=== PATIENT | female | born 1955 | race Caucasian/White ===

== ENCOUNTER 2018-09-30 11:29 | Emergency (ER) | payer OTHER ==
[2018-09-30 11:37] VITALS: TEMP 98.2; BMI 27.4
--- NOTE | 2018-09-30 11:48 | ED PDOC ---
Arrival/HPI - General Historian: Patient - History of Present Illness Narrative History of Present Illness (Text): 09/30/18 11:45 62 year old female, whose past medical history includes hypertension, diabetes, and hyperlipidemia, presents to the emergency department accompanied family complaining of sharp midsternal chest pain radiating to the left shoulder at times associated with shortness of breath and productive cough that began yesterday. Patient reports she recently arrived from [place] 3 days ago. Patient also reports bilateral lower extremity edema yesterday, which is resolving. Patient reported similar symptoms 8 years ago where she had a catheterization procedure done, but no stents placed. Patient reports numbness to the face at times, but denies any fever, chills, nausea, vomiting, diarrhea, urinary symptoms, back pain, neck pain, headache, dizziness, or any other complaints. PMD: Physician in [place] Past Medical History - Provider Review Nursing Documentation Reviewed: Yes - Travel History Have you recently traveled outside w/in the past 3 mons?: Yes Family/Social History - Physician Review Nursing Documentation Reviewed: Yes Family/Social History: CVA/TIA Allergies/Home Meds Allergies/Adverse Reactions: Allergies No Known Allergies Allergy (Verified 09/30/18 11:37) Home Medications: Home Meds Medication Instructions Recorded Confirmed Aspirin [Aspirin Chewable] 81 mg PO DAILY 09/30/18 09/30/18 Enalapril Maleate [Vasotec] 20 mg PO DAILY 09/30/18 09/30/18 Glipizide [Glipizide Xl] 5 mg PO DAILY 09/30/18 09/30/18 Simvastatin [Zocor] 20 mg PO DAILY 09/30/18 09/30/18 metFORMIN [glucOPHAGE] 500 mg PO DAILY 09/30/18 09/30/18 Review of Systems - Physician Review All systems were reviewed & negative as marked: Yes - Review of Systems Constitutional: absent: Fevers, Other (chills) Respiratory: SOB, Cough Cardiovascular: Chest Pain, Edema Gastrointestinal: absent: Abdominal Pain, Diarrhea, Nausea, Vomiting Genitourinary Female: absent: Dysuria, Frequency, Hematuria Musculoskeletal: absent: Back Pain, Neck Pain Neurological: Other (numbness to face at times). absent: Headache, Dizziness Physical Exam Vital Signs Reviewed: Yes Vital Signs Temp Pulse Resp BP Pulse Ox 09/30/18 11:37 98.2 F 63 18 142/67 100 Temperature: Afebrile Blood Pressure: Normal Pulse: Regular Respiratory Rate: Normal Appearance: Positive for: Well-Appearing, Non-Toxic, Comfortable Pain Distress: None Mental Status: Positive for: Alert and Oriented X 3 - Systems Exam Head: Present: Atraumatic, Normocephalic Pupils: Present: PERRL Extroacular Muscles: Present: EOMI Conjunctiva: Present: Normal Mouth: Present: Moist Mucous Membranes Neck: Present: Normal Range of Motion Respiratory/Chest: Present: Clear to Auscultation, Good Air Exchange. No: Respiratory Distress, Accessory Muscle Use Cardiovascular: Present: Regular Rate and Rhythm, Normal S1, S2. No: Murmurs Abdomen: No: Tenderness, Distention, Peritoneal Signs Back: Present: Normal Inspection Upper Extremity: Present: Normal Inspection. No: Cyanosis, Edema Lower Extremity: Present: Normal Inspection. No: Edema Neurological: Present: GCS=15, CN II-XII Intact, Speech Normal Skin: Present: Warm, Dry, Normal Color. No: Rashes Psychiatric: Present: Alert, Oriented x 3, Normal Insight, Normal Concentration Medical Decision Making ED Course and Treatment: 09/30/18 11:45 Impression: 62 year old female presents complaining of sharp midsternal chest pain radiating to the left shoulder at times associated with shortness of breath, productive cough, and edema to the lower extremities that began yesterday. Patient arrived from [place] 3 days ago. Plan: -- CT Angio chest PE Protocol -- EKG -- Labs -- Chest X-Ray -- Aspirin -- Reassess and disposition Progress Notes: EKG shows NRS at 63 BPM with t-wave inversion in lateral leads. Interpreted by me. Chest X-Ray Dictated by: Giovany Schulte MD Date Signed: 09/30/18 1342 Impression: No active disease Angio Chest PE Protocol Dictated by: Luther Randle MD Dated by: 09/30/18 1412 Impression: No evidence of pulmonary embolism. Incidentally noted cholelithiasis. No pulmonary infiltrate or pleural effusion. 09/30/18 14:30 Leaving Against Medical Advice (AMA): The patient is choosing to leave against medical advice. I have personally explained to the patient that choosing to do so may result in permanent bodily harm or . I have discussed at great length that without further evaluation and monitoring there may be unforeseen circumstances and/or deterioration causing permanent bodily harm or as a result of their choice. The patient is alert, oriented, and shows the mental capacity to make clear decisions regarding the patients health care at this time. The patient continues to wish to leave against medical advice. In light of the patients decision to leave against medical advice, follow-up has been arranged and the patient is aware of the importance to following up as instructed. The patient has been advised that they should return to the e mergency room immediately if they change their mind at any time, or if their condition begins to change or worsen in any way. Will be giving patient prescription of her Enalapril which she takes 20mg twice a day. - Lab Interpretations I have reviewed the lab results: Yes - RAD Interpretation Team Assembly Line Machine Operator: Radiologist - EKG Interpretation Interpreted by ED Physician: Yes Type: 12 lead EKG Disposition/Present on Arrival - Present on Arrival Any Indicators Present on Arrival: No - Disposition Have Diagnosis and Disposition been Completed?: Yes Diagnosis: Chest pain Disposition: AGAINST MEDICAL ADVICE Disposition Time: 14:30 Condition: GUARDED Discharge Instructions (ExitCare): Chest Pain (ED) Additional Instructions: ASTRID HINES, thank you for letting us take care of you today. Your provider was Beny Mckinney DO and you were treated for chest pain. The emergency medical care you received today was directed at your acute symptoms. If you were prescribed any medication, please fill it and take as directed. It may take several days for your symptoms to resolve. Return to the Emergency Department if your symptoms worsen, do not improve, or if you have any other problems. Please contact your doctor or call one of the physicians/clinics you have been referred to that are listed on the Patient Visit Information form that is included in your discharge packet. Bring any paperwork you were given at discharge with you along with any medications you are taking to your follow up visit. Our treatment cannot replace ongoing medical care by a primary care provider outside of the emergency department. Thank you for allowing the [email or web address] team to be part of your care today. YOU SIGNED OUT AGAINST MEDICAL ADVICE. Follow up with your clinic 2-3 days for outpatient care. Return to the emergency room if you have any concerns. Prescriptions: Enalapril Maleate [Vasotec] 20 mg PO BID #60 tab Referrals: [facility] [Outside] - Follow up with primary Chiquita Falcon MD [Medical Doctor] - Follow up with primary
[2018-09-30 12:28] LABS: BASO # 0.01 {null, K/mm3} (0.0-2.0); BASO % 0.1 % (0.0-3.0); EOS % 0.1 % (1.5-5.0); HEMOGLOBIN 11.2 g/dL (12.0-16.0); LYMPH # 1.4 (1.2-3.4); LYMPH % 11.8 % (22.0-35.0); MEAN CELL VOLUME 80.4 fl (80.0-105.0); MEAN CORPUSCULAR HEMOGLOBIN 24.6 pg (25.0-35.0); MEAN CORPUSCULAR HGB CONC 30.6 g/dl (31.0-37.0); MEAN PLATELET VOLUME 10.4 fl (7.0-11.0); MONO # 1.1 (0.1-0.6); MONO % 9.6 % (1.0-6.0); RBC 4.55 {null, 10^6/uL} (3.5-6.1); RED CELL DISTRIBUTION WIDTH 15.3 % (11.5-14.5); WHITE BLOOD COUNT 11.5 {null, 10^3/uL} (4.5-11.0)
[2018-09-30] MEDS ORDERED: Iohexol 350 MG/100 ML VIAL ONE (12:38)
[2018-09-30 12:47] LABS: ALB/GLOB RATIO 1.2 (1.1-1.8); ALBUMIN 3.9 g/dL (3.0-4.8); ALT/SGPT 27 U/L (7-56); AST/SGOT 21 U/L (14-36); BLOOD UREA NITROGEN 21 mg/dL (7-21); GFR NON-AFRICAN AMERICAN > 60
[2018-09-30 12:59] LABS: B-TYPE NATRIURETIC PEPTIDE 969 pg/mL (0-450); TROPONIN I < 0.01 ng/mL
--- NOTE | 2018-09-30 13:51 | RAD ---
Date of service: 09/30/2018 PROCEDURE: CHEST RADIOGRAPH, 1 VIEW HISTORY: chest pain COMPARISON: None available. FINDINGS: LUNGS: Clear. PLEURA: No pneumothorax or pleural fluid seen. CARDIOVASCULAR: Aortic calcification mild cardiomegaly OSSEOUS STRUCTURES: No significant abnormalities. VISUALIZED UPPER ABDOMEN: Normal. OTHER FINDINGS: None. IMPRESSION: No active disease.
--- NOTE | 2018-09-30 14:15 | CT ---
Date of service: 09/30/2018 PROCEDURE: CT Chest with contrast (Pulmonary Angiogram) HISTORY: SOB/CP r/o PE COMPARISON: None available. TECHNIQUE: Axial computed tomography images were obtained of the chest in the pulmonary arterial phase of enhancement. Coronal and sagittal reformatted images were created and reviewed. Intravenous contrast dose: 100 mL Omnipaque 350 Radiation dose: Total exam DLP = 379.49 mGy-cm. This CT exam was performed using one or more of the following dose reduction techniques: Automated exposure control, adjustment of the mA and/or kV according to patient size, and/or use of iterative reconstruction technique. FINDINGS: PULMONARY ARTERIES: Unremarkable. No pulmonary embolism. AORTA: No acute findings. No thoracic aortic aneurysm. No aortic atherosclerotic calcification or mural plaque present. LUNGS: Unremarkable. No nodule, mass or pulmonary consolidation. PLEURAL SPACES: Unremarkable. No effusion or pneumothorax. HEART: Unremarkable. No cardiomegaly. No significant pericardial effusion. LYMPH NODES: No lymphadenopathy. BONES, CHEST WALL: Unremarkable. No fracture or destructive lesion OTHER FINDINGS: Cholelithiasis. IMPRESSION: No evidence of pulmonary embolism. Incidentally noted cholelithiasis. No pulmonary infiltrate or pleural effusion.
--- NOTE | 2018-09-30 15:27 | CARD ---
APPROVED REPORT Date of service: 09/30/2018 EKG Measurement Heart [id number] CT [id number] [id number] <Conclusion> Normal sinus rhythm T wave abnormality, consider anterolateral ischemia Abnormal ECG
[2018-09-30 15:45] VITALS: BP 140/78; PULSE 68; RESP 18
[2018-09-30 15:49] VITALS: O2SAT 98
== END 2018-09-30 15:00 | disposition left against medical advice (07) ==
LOC: ED 11:29
DX: R07.9 Chest pain, unspecified (principal); I10 Essential (primary) hypertension; E11.9 Type 2 diabetes mellitus without complications; E78.5 Hyperlipidemia, unspecified; Z82.3 Family history of stroke
CPT/HCPCS: 71045; 71275; 80053; 82550; 83615; 83735; 83880; 84484; 85025; 93005; 99285; Q9967